=== PATIENT | male | born 1980 | race Caucasian/White ===

== ENCOUNTER 2016-07-28 23:44 | Emergency (ER) | payer SELFPAY ==
[~2016-07-28] VITALS: Ht 180.3 cm; Wt 97.5 kg
[~2016-07-28 23:44] MED LIST: PRM1O30 PR
--- OUTSIDE RECORDS SUMMARY | 2016-07-28 23:51 | XMS REPORT | Continuity of Care Document ---
Demographics Preferred Language Unknown Marital Status Unknown Cheondoism Affiliation Unknown Race Unknown Ethnic Group Unknown Author Author [facility] Address Unknown Phone Unavailable Allergies Active Description Code Type Severity Reaction Onset Reported/Identified Relationship to Patient Clinical Status Yes No Known Drug Allergies [id number] Drug Allergy Unknown N/ A 06/10/2012 Medications Problems Date Dx Coded Attending Type Code Diagnosis Diagnosed By 02/28/2010 724.5 BACKACHE UNSPECIFIED 06/10/2012 Ot 455.4 06/10/2012 Ot 569.3 07/04/2012 789.04 ABDOMINAL PAIN LEFT LOWER QUADRANT 07/04/2012 848.9 SPRAIN/STRAIN OTHER UNSPEC SITE 11/26/2014 KHANH CARPIO APRN Ot 300.01 11/26/2014 KHANH CARPIO APRN Ot 781.0 Procedures Results Encounters ACCT No. Visit Date/Time Discharge Status Pt. Type Provider Facility Loc./Unit Complaint [id number] 07/04/2012 09:38:00 07/04/2012 23: 59:59 CLS Outpatient
--- NOTE | 2016-07-29 01:48 | ED GU-Male ---
General Chief Complaint: -Male Stated Complaint: GENITAL LAC Nursing Triage Note: Patient reports shaving and cutting the shaft of his penis, patient reports he was erect while shaving and hasn't been able to become erect since. minor abrasion noted. Source: patient Exam Limitations: no limitations History of Present Illness Time seen by provider: 01:38 Initial Comments Patient presents to the emergency room for evaluation of a penile injury. He was using electric clippers to trim his pubic hair when he accidentally abraded the underside of the penis shaft. The abrasion is very minor but he is concerned that he immediately lost erection and has been unable to achieve erection since. There is not bleeding, swelling or significant pain. Allergies and Home Medications Allergies Coded Allergies: No Known Drug Allergies (Unverified , 06/10/12) Home Medications No Active Prescriptions or Reported Meds Constitutional: no symptoms reported Genitourinary: see HPI Skin: see HPI Psychiatric/Neurological: No Symptoms Reported Past Cqjdarq-Xiyent-Henpzf Hx Patient Social History Alcohol Use: Denies Use Recreational Drug Use: No Smoking Status: Never a Smoker Recent Foreign Travel: No Contact w/Someone Who Travel: No Recent Infectious Disease Expo: No Recent Hopitalizations: No Immunizations Up To Date Tetanus Booster (TDap): Unknown Surgeries HX Surgeries: No Respiratory Hx Respiratory Disorders: No Cardiovascular Hx Cardiac Disorders: No Neurological Hx Neurological Disorders: No Reproductive System Hx Reproductive Disorders: No Sexually Transmitted Disease: No HIV/AIDS: No Genitourinary Hx Genitourinary Disorders: No Gastrointestinal Hx Gastrointestinal Disorders: No Musculoskeletal Hx Musculoskeletal Disorders: No Endocrine Hx Endocrine Disorders: No HEENT HX ENT Disorders: No Cancer Hx Cancer: No Psychosocial Hx Psychiatric Problems: No Integumentary HX Skin/Integumentary Disorder: No Blood Transfusions Hx Blood Disorders: No Adverse Reaction to a Blood Tr: No Physical Exam Vital Signs Vital Sign - Last 12Hours 07/29/16 01:02 Temp 98.2 Pulse 92 Resp 18 B/P 140/90 Pulse Ox 95 Capillary Refill : Less Than 3 Seconds General Appearance: WD/WN no apparent distress HEENT: normal ENT inspection Male: other (minor abrasion to the underside of the penile shaft. No swelling , bleeding or significant pain. 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 Decision time for Depature: 01:40 Referrals: [facility] (PCP/Family) Primary Care Physician Patient Instructions: Skin Abrasions Add. Discharge Instructions: Monitor your abrasions for signs of infection such as increasing redness or pus- like drainage. Return to care if you notice these symptoms. Avoid intercourse or other activities that would cause friction until the wounds are healed. Return to care if you have any further problems. All discharge instructions reviewed with patient and/or family. Voiced understanding. Scripts No Active Prescriptions or Reported Meds THOMAS CORTEZ MD Jul 29, 2016 01:48
[2016-07-29 01:51] VITALS: BP 140/90
== END 2016-07-29 01:51 | disposition home or self-care (01) ==
LOC: EDUNIT# 23:44 → ER 23:48
DX: S30.812A Abrasion of penis, initial encounter (principal); W45.8XXA Other foreign body or object entering through skin, initial encounter; Y92.009 Unspecified place in unspecified non-institutional (private) residence as the place of occurrence of the external cause; Y99.8 Other external cause status
CPT/HCPCS: 99282

== ENCOUNTER 2018-09-27 03:36 | Emergency (ER) | payer SELFPAY ==
[~2018-09-27] VITALS: Ht 180.3 cm; Wt 95.3 kg
[2018-09-27] MEDS ORDERED: ACYC200C PO (03:56)
--- NOTE | 2018-09-27 03:57 | ED Integumentary General ---
General Chief Complaint: General Problems/Pain Stated Complaint: NAUSEA,RT SIDE ISSUES Source: patient Exam Limitations: no limitations History of Present Illness Date Seen by Provider: Sep 27, 2018 Time Seen by Provider: 03:41 Initial Comments Patient presents to ER by private conveyance with chief complaint of one half days of the itching and burning sometimes painful sensation in his right abdomen while wrapping around to the back. He does not have a rash there no history of shingles but he did have chickenpox as a child. No abdominal surgeries no medical history and does not take any medicines. He's not tried anything for it because only been mildly irritating. He says it just itches and he'll scratch little bit to go away after a while but, right back. Tonight however as he is lying there and it was getting a little more painful and even got some nausea but no vomiting. No fevers chills diarrhea, vomiting, history of significant family illness. Allergies and Home Medications Allergies Coded Allergies: No Known Drug Allergies (Unverified , 06/10/12) Home Medications No Active Prescriptions or Reported Meds Patient Home Medication List Home Medication List Reviewed: Yes Review of Systems Review of Systems Constitutional: No chills, No diaphoresis EENTM: No ear discharge, No ear pain Respiratory: No cough, No short of breath Cardiovascular: No chest pain, No edema Gastrointestinal: No abdominal pain, No nausea, No vomiting Genitourinary: No discharge, No dysuria Past Aeljxvn-Dnredf-Hleaeh Hx Patient Social History Alcohol Use: Denies Use Recreational Drug Use: No Smoking Status: Never a Smoker 2nd Hand Smoke Exposure: No Recent Foreign Travel: No Contact w/Someone Who Travel: No Recent Hopitalizations: No Immunizations Up To Date Tetanus Booster (TDap): Unknown Seasonal Allergies Seasonal Allergies: No Past Medical History Surgeries: No Respiratory: No Cardiac: No Neurological: No Reproductive Disorders: No Sexually Transmitted Disease: No HIV/AIDS: No Genitourinary: No Gastrointestinal: No Musculoskeletal: No Endocrine: No HEENT: No Cancer: No Psychosocial: No Integumentary: No Blood Disorders: No Adverse Reaction/Blood Tranf: No Physical Exam Vital Signs Capillary Refill : General Appearance: WD/WN, no apparent distress HEENT: PERRL/EOMI, normal ENT inspection, pharynx normal Cardiovascular: normal peripheral pulses, regular rate, rhythm Respiratory: no respiratory distress, no accessory muscle use Gastrointestinal: normal bowel sounds, non tender, soft Neurologic/Psychiatric: alert, oriented x 3 Skin: normal color, warm/dry Progress/Results/Core Measures Progress Progress Note : Time: 03:54 Progress Note Afebrile with normal vital signs. His burning itching sensation in a dermatomal one-sided presentation could be shingles. We discussed the case and since he is so benign appearing without any acute abdomen going to put him on some Cyclovir had a follow-up in a week with primary care at [facility]. Departure Impression Primary Impression: Shingles Qualified Codes: B02.9 - Zoster without complications Disposition: HOME, SELF-CARE Condition: Stable Departure-Patient Inst. Decision time for Depature: 03:55 Referrals: [facility] (PCP/Family) Primary Care Physician Patient Instructions: Lindy (DC) Add. Discharge Instructions: You may develop a rash with blisters. The fluid from the blisters is contagious so just keep it covered with a light dressing while at work or out in public. If you have itching you can use Claritin or Zyrtec one tablet daily and Benadryl 1-2 tablets every 6 hours as needed to control the itching. Tylenol and/or ibuprofen can help with pain. Cold compresses may be helpful. collaborating supervising physician the acyclovir take one capsule 5 times a day for the next week. Follow-up with primary care in 1 week if symptoms have not resolved. You have fever above 102.5, severe chest pain, shortness of breath or other worrisome symptoms return to the ER. All discharge instructions reviewed with patient and/or family. Voiced understanding. Scripts Acyclovir (Acyclovir) 200 Mg Capsule 200 MG PO 5XD for 7 Days, #35 CAP 0 Refills Prov: LIZZETH CHAKRABORTY 09/27/18 LIZZETH CHAKRABORTY Sep 27, 2018 03:57
[2018-09-27 04:00] VITALS: BP 104/64
== END 2018-09-27 03:59 | disposition home or self-care (01) ==
LOC: EDUNIT# 03:36 → ER 03:40
DX: B02.9 Zoster without complications (principal)
CPT/HCPCS: 99281

== ENCOUNTER 2020-03-25 17:26 | Emergency (ER) | payer MEDICAID, OTHER ==
[~2020-03-25] VITALS: Ht 182 cm; Wt 95.0 kg
[~2020-03-25 17:26] MED LIST changes: +ACYC200C PO
[2020-03-25] MEDS ORDERED: TETANUS,DIPTH,PERTUSS P/F (BOOSTRIX) 0.5 ML VIAL IM ONE (17:45)
--- NOTE | 2020-03-25 17:46 | ED Upper Extremity ---
General Chief Complaint: Laceration Stated Complaint: LEFT POINTER FINGER LACERATION Source: patient Exam Limitations: no limitations History of Present Illness Date Seen by Provider: Mar 25, 2020 Time Seen by Provider: 17:43 Initial Comments To ER by private vehicle with reports of a laceration to the pad of the distal left pointer finger that occurred while he was at work at [employer] just prior to arrival. He was using a box knife to open a box when the knife slipped. Tetanus is not up-to-date. Onset: just prior to arrival Severity: mild Pain/Injury Location: left 2nd finger Modifying Factors: Worse With Movement Allergies and Home Medications Allergies Coded Allergies: No Known Drug Allergies (Unverified , 06/10/12) Home Medications Acyclovir 200 Mg Capsule, 200 MG PO 5XD Prescribed by: LIZZETH CHAKRABORTY on 09/27/18 0356 Patient Home Medication List Home Medication List Reviewed: Yes Review of Systems Constitutional: see HPI EENTM: see HPI Respiratory: no symptoms reported Cardiovascular: no symptoms reported Genitourinary: no symptoms reported Musculoskeletal: no symptoms reported Skin: see HPI Psychiatric/Neurological: No Symptoms Reported Past Iyjfnao-Ffolxj-Ucmplc Hx Patient Social History 2nd Hand Smoke Exposure: No Recent Foreign Travel: No Contact w/Someone Who Travel: No Recent Hopitalizations: No Immunizations Up To Date Tetanus Booster (TDap): Unknown Seasonal Allergies Seasonal Allergies: No Past Medical History Surgeries: No Respiratory: No Cardiac: No Neurological: No Reproductive Disorders: No Sexually Transmitted Disease: No HIV/AIDS: No Genitourinary: No Gastrointestinal: No Musculoskeletal: No Endocrine: No HEENT: No Cancer: No Psychosocial: No Integumentary: No Blood Disorders: No Adverse Reaction/Blood Tranf: No Physical Exam Vital Signs Capillary Refill : Height, Weight, BMI Height: 5'11" Weight: 210lbs. oz. 95.729711cn; 29.98 BMI Method:Stated General Appearance: WD/WN, no apparent distress Respiratory: no respiratory distress, no accessory muscle use Wrist: Yes normal inspection, Yes non-tender Hand: Left, laceration (there is a skin avulsion to the pad of the distal left pointer finger. Nothing to suture but this will require skin affix glue for the sake of hemostasis.) Neurologic/Tendon: normal sensation, normal motor functions, normal tendon functions Neurologic/Psychiatric: alert, normal mood/affect, oriented x 3 Skin: normal color, warm/dry Progress/Results/Core Measures Results/Orders My Orders Orders - KHANH CARPIO APRN Dipht,Pertuss(Acell),Tet Adult (Boostrix (03/25/20 17:45) Departure Impression Primary Impression: Avulsion of skin of finger Qualified Codes: S61.209A - Unspecified open wound of unspecified finger without damage to nail, initial encounter Disposition: HOME, SELF-CARE Condition: Stable Departure-Patient Inst. Decision time for Depature: 17:44 Referrals: [facility] (PCP/Family) Primary Care Physician Patient Instructions: SKIN AVULSION Add. Discharge Instructions: Lab included a fall off on its own in 3-5 days. Keep this covered with a Band- Aid in the meantime do not apply any lotions or ointments All discharge instructions reviewed with patient and/or family. Voiced underst anding. KHANH CARPIO APRN Mar 25, 2020 17:46
[2020-03-25 17:54] VITALS: BP 0/0
== END 2020-03-25 17:54 | disposition home or self-care (01) ==
LOC: ER 17:26
DX: S61.311A Laceration without foreign body of left index finger with damage to nail, initial encounter (principal); Z23 Encounter for immunization; W26.0XXA Contact with knife, initial encounter
CPT/HCPCS: 12001; 90715